=== PATIENT | female | born 1960 | race Two or more races ===

== ENCOUNTER 2021-10-12 21:21 | Emergency (ER) | payer OTHER ==
[~2021-10-12] VITALS: Ht 157.5 cm; Wt 88.0 kg
[2021-10-12] MEDS ORDERED: RAYOS5 MG (22:04)
== END 2021-10-13 00:23 | disposition home or self-care (01) ==
LOC: ER 21:21
DX: S60.222A Contusion of left hand, initial encounter (principal); W22.8XXA Striking against or struck by other objects, initial encounter; Y92.89 Other specified places as the place of occurrence of the external cause

== ENCOUNTER 2024-09-21 21:29 | Emergency (ER) | payer OTHER ==
[~2024-09-21] VITALS: Ht 154.9 cm; Wt 88.0 kg
[~2024-09-21 21:29] MED LIST: RAYOS5 MG
[2024-09-21] MEDS ORDERED: FOLIC ACID1 MG PO (22:05)
[2024-09-21] MEDS ORDERED: TEGRETOL200 MG PO (22:06)
[2024-09-21] MEDS ORDERED: METHOTREXATE2.5 MG PO (22:06)
[2024-09-21] MEDS ORDERED: HUMIRA40 MG/0.2 SQ (22:07)
[2024-09-21] MEDS ORDERED: COZAAR50 MG PO (22:08)
[2024-09-21] MEDS ORDERED: CEFTRIAXONE SODIUM 1,000 MG VIAL IM ONE (22:30)
[2024-09-21] MEDS ORDERED: TRAMADOL HCL 50 MG TABLET PO ONE (22:30)
[2024-09-21] MEDS ORDERED: LIDOCAINE HCL 1% 10ML VIAL PERCUT ONE (22:30)
[2024-09-21] MEDS ORDERED: PEPCID AC20 MG PO (22:42)
[2024-09-21] MEDS ORDERED: CEPHALEXIN750 MG PO (22:42)
== END 2024-09-21 23:35 | disposition home or self-care (01) ==
LOC: ER 21:31
DX: S00.81XA Abrasion of other part of head, initial encounter (principal); X79.XXXA Intentional self-harm by blunt object, initial encounter; Y93.89 Activity, other specified; Y92.89 Other specified places as the place of occurrence of the external cause; Y99.9 Unspecified external cause status; Z88.6 Allergy status to analgesic agent